=== PATIENT | male | born 1995 | race Caucasian/White ===

== ENCOUNTER 2017-05-09 21:05 | Emergency (ER) | payer SELFPAY ==
[~2017-05-09] VITALS: Ht 182.9 cm; Wt 70.0 kg
[2017-05-09 21:49] VITALS: BP 106/83; PULSE 83; RESP 12; TEMP 97.4; O2SAT 97
[2017-05-09 22:50] LABS: AUTOMATED NEUTROPHIL # 6.4 TH/MM3 (1.8-7.7); BASOPHIL # 0.1 TH/MM3 (0-0.2); BASOPHIL % 0.9 % (0.0-2.0); EOSINOPHIL % 0.5 % (0.0-4.0); HEMATOCRIT 42.3 % (39.0-51.0); HEMOGLOBIN 15.4 GM/DL (13.0-17.0); LYMPHOCYTE # 2.4 TH/MM3 (1.0-4.8); MEAN CORPUSCULAR HEMOGLOBIN 34.6 PG (27.0-34.0); MEAN PLATELET VOLUME 7.5 FL (7.0-11.0); MONO % 10.1 % (0.0-8.0); NEUT % 64.5 % (16.0-70.0); PLATELET COUNT 172 TH/MM3 (150-450); RED BLOOD COUNT 4.45 MIL/MM3 (4.50-5.90); RED CELL DISTRIBUTION WIDTH 14.6 % (11.6-17.2); WHITE BLOOD COUNT 9.9 TH/MM3 (4.0-11.0)
[2017-05-09 22:56] LABS: MEAN CORPUSCULAR HGB CONC 36.4 % (32.0-36.0)
[2017-05-09 23:16] LABS: ALBUMIN 4.3 GM/DL (3.4-5.0); AST (GOT) 55 U/L (15-37); BLOOD UREA NITROGEN 9 MG/DL (7-18); CALCIUM 8.8 MG/DL (8.5-10.1); CHLORIDE 102 MEQ/L (98-107); CREATININE 0.81 MG/DL (0.60-1.30); GLOMERULAR FILTRATION RATE 119 ML/MIN (>89); GLUCOSE,RANDOM 101 MG/DL (74-106); SODIUM (NA) 141 MEQ/L (136-145)
[2017-05-09 23:18] LABS: ALT (GPT) 101 U/L (12-78)
[2017-05-09 23:20] VITALS: BP 120/84; PULSE 76; RESP 12; O2SAT 98
[2017-05-09 23:21] LABS: ALKALINE PHOSPHATASE 92 U/L (45-117); TOTAL BILIRUBIN ADULT 0.4 MG/DL (0.2-1.0)
[2017-05-10] MEDS ORDERED: POTASSIUM CHLORIDE 20 MEQ CONTROLLED RELEASE TAB PO ONE (04:30)
[2017-05-10] MEDS ORDERED: SODIUM CHLOR 0.9% 1000 ML INJ 1,000 ML IV ONE (04:30)
--- NOTE | 2017-05-10 04:50 | PD ---
HPI Chief Complaint: Alcohol/Drug Intoxication Time Seen by Provider: 04:17 Travel History International Travel<30 days: No Contact w/Intl Traveler<30days: No Traveled to known affect area: No History of Present Illness HPI 21-year-old white male presents to emergency department under March[place] act by [facility]. The patient was found heavily intoxicated and unable to care for himself. The patient here has urinated on himself. He is refusing to change into dry clothing. He is unable to give any meaningful history. PFSH Past Medical History Autoimmune Disease: No Depression: Yes Cancer: No Cardiovascular Problems: No Diminished Hearing: No Endocrine: No Genitourinary: No Immune Disorder: No Musculoskeletal: Yes (chronic recurrent right shoulder dislocations) Neurologic: No Psychiatric: No Reproductive: No Respiratory: Yes Immunizations Current: Yes Past Surgical History Other Surgery: Yes Social History Alcohol Use: Yes Tobacco Use: Yes Substance Use: No Allergies-Medications (Allergen,Severity, Reaction): Coded Allergies: No Known Allergies (Verified Adverse Reaction, Unknown, 05/09/17) Reported Meds & Prescriptions Reported Meds & Active Scripts Active No Active Prescriptions or Reported Medications Review of Systems ROS Limitations: Intoxication Physical Exam Narrative GENERAL: Well-nourished, well-developed patient. Smells of EtOH appears intoxicated SKIN: Warm and dry. HEAD: Normocephalic and atraumatic. EYES: No scleral icterus. No injection or drainage. ENT: No nasal drainage noted. Mucous membranes pink. Airway patent. NECK: Supple, trachea midline. Moves head freely without obvious discomfort. CARDIOVASCULAR: Regular rate and rhythm without murmurs, gallops, or rubs. RESPIRATORY: Breath sounds equal bilaterally. No accessory muscle use. GASTROINTESTINAL: Abdomen soft, non-tender, nondistended. EXTREMITIES: No cyanosis or edema. BACK: Nontender without obvious deformity. No CVA tenderness. NEURO: Patient is alert and oriented. no sensorimotor deficits. Nonfocal. Slurred speech. PSYCH: No delusions. No auditory or visual hallucinations. Data Data Last Documented VS Vital Signs Date Time Temp Pulse Resp B/P (MAP) Pulse Ox O2 Delivery O2 Flow Rate FiO2 05/09/17 23:20 76 12 120/84 (96) 98 Room Air 05/09/17 21:49 97.4 Orders Orders Complete Blood Count With Diff (05/09/17 21:59) Comprehensive Metabolic Panel (05/09/17 21:59) Psych Screen (05/09/17 21:59) Drug Screen, Random Urine (05/09/17 21:59) Alcohol (Ethanol) (05/09/17 21:59) Sodium Chlor 0.9% 1000 Ml Inj (Ns 1000 M (05/10/17 04:30) Potassium Chloride (Kcl) (05/10/17 04:30) Labs Laboratory Tests Test 05/09/17 22:26 White Blood Count 9.9 TH/MM3 Red Blood Count 4.45 MIL/MM3 Hemoglobin 15.4 GM/DL Hematocrit 42.3 % Mean Corpuscular Volume 95.0 FL Mean Corpuscular Hemoglobin 34.6 PG Mean Corpuscular Hemoglobin Concent 36.4 % Red Cell Distribution Width 14.6 % Platelet Count 172 TH/MM3 Mean Platelet Volume 7.5 FL Neutrophils (%) (Auto) 64.5 % Lymphocytes (%) (Auto) 24.0 % Monocytes (%) (Auto) 10.1 % Eosinophils (%) (Auto) 0.5 % Basophils (%) (Auto) 0.9 % Neutrophils # (Auto) 6.4 TH/MM3 Lymphocytes # (Auto) 2.4 TH/MM3 Monocytes # (Auto) 1.0 TH/MM3 Eosinophils # (Auto) 0.0 TH/MM3 Basophils # (Auto) 0.1 TH/MM3 CBC Comment AUTO DIFF Differential Comment AUTO DIFF CONFIRMED Blood Urea Nitrogen 9 MG/DL Creatinine 0.81 MG/DL Random Glucose 101 MG/DL Total Protein 8.0 GM/DL Albumin 4.3 GM/DL Calcium Level 8.8 MG/DL Alkaline Phosphatase 92 U/L Aspartate Amino Transf (AST/SGOT) 55 U/L Alanine Aminotransferase (ALT/SGPT) 101 U/L Total Bilirubin 0.4 MG/DL Sodium Level 141 MEQ/L Potassium Level 3.1 MEQ/L Chloride Level 102 MEQ/L Carbon Dioxide Level 22.0 MEQ/L Anion Gap 17 MEQ/L Estimat Glomerular Filtration Rate 119 ML/MIN Ethyl Alcohol Level 407 MG/DL [facility] Medical Decision Making Medical Screen Exam Complete: Yes Emergency Medical Condition: Yes Medical Record Reviewed: Yes Interpretation(s) CT brain: Negative for acute trauma. CT cervical spine: Negative for acute trauma. Laboratory Tests Test 05/09/17 22:26 White Blood Count 9.9 TH/MM3 Red Blood Count 4.45 MIL/MM3 Hemoglobin 15.4 GM/DL Hematocrit 42.3 % Mean Corpuscular Volume 95.0 FL Mean Corpuscular Hemoglobin 34.6 PG Mean Corpuscular Hemoglobin Concent 36.4 % Red Cell Distribution Width 14.6 % Platelet Count 172 TH/MM3 Mean Platelet Volume 7.5 FL Neutrophils (%) (Auto) 64.5 % Lymphocytes (%) (Auto) 24.0 % Monocytes (%) (Auto) 10.1 % Eosinophils (%) (Auto) 0.5 % Basophils (%) (Auto) 0.9 % Neutrophils # (Auto) 6.4 TH/MM3 Lymphocytes # (Auto) 2.4 TH/MM3 Monocytes # (Auto) 1.0 TH/MM3 Eosinophils # (Auto) 0.0 TH/MM3 Basophils # (Auto) 0.1 TH/MM3 CBC Comment AUTO DIFF Differential Comment AUTO DIFF CONFIRMED Blood Urea Nitrogen 9 MG/DL Creatinine 0.81 MG/DL Random Glucose 101 MG/DL Total Protein 8.0 GM/DL Albumin 4.3 GM/DL Calcium Level 8.8 MG/DL Alkaline Phosphatase 92 U/L Aspartate Amino Transf (AST/SGOT) 55 U/L Alanine Aminotransferase (ALT/SGPT) 101 U/L Total Bilirubin 0.4 MG/DL Sodium Level 141 MEQ/L Potassium Level 3.1 MEQ/L Chloride Level 102 MEQ/L Carbon Dioxide Level 22.0 MEQ/L Anion Gap 17 MEQ/L Estimat Glomerular Filtration Rate 119 ML/MIN Ethyl Alcohol Level 407 MG/DL Differential Diagnosis Differential diagnoses: Alcohol intoxication, substance abuse, electrolyte abnormality, malingering Narrative Course This is a 21-year-old white male with a history of alcohol abuse. He presents under Marchman act. His blood alcohol was over 400. The patient has been able to sober up here over the past 7 hours. His blood alcohol still calculates to be over 230. The patient has become a social problem in the ER. He is threatening to leave the ER. He is coming up to the nursing station and becoming belligerent. He has refused to change into dry clothing. He has urinated on himself and in the stretcher. The patient had been given 40 mEq of potassium by mouth and a liter bolus of normal saline. Unfortunately he has no one to pick him up at this time. With an alcohol over 230 he still cannot be released to his own cognizance. The patient once he exhibits are level sobriety can be discharged. This is alcohol intoxication Diagnosis Primary Impression: alcohol intoxication Additional Impression: alcoholism Additional Instructions: Rest. Increase fluids. Avoid alcohol. Avoid illegal substances. Follow-up with [facility] for detox. Do not operate a car or any heavy machinery under the influence of alcohol or drugs. Follow-up with a medical doctor this week. Return to the ER for emergencies Med/Other Pt SpecificInfo: No Meds Exist/No RX given Scripts No Active Prescriptions or Reported Meds Disposition: 01 DISCHARGE HOME Condition: Stable Maury Woodward May 10, 2017 04:50
[2017-05-10 07:30] VITALS: BP 122/81; PULSE 87; RESP 17; TEMP 97.8; O2SAT 98
[2017-05-10 08:25] VITALS: BP 124/81; TEMP 97.8
== END 2017-05-10 08:28 | disposition home or self-care (01) ==
LOC: NEDAMB 21:05 → NEPD 05-10 08:28
DX: F10.229 Alcohol dependence with intoxication, unspecified (principal); Y90.8 Blood alcohol level of 240 mg/100 ml or more; F32.9 Major depressive disorder, single episode, unspecified; Z72.0 Tobacco use
CPT/HCPCS: 80053; 80307; 85025; 96360; 96361; 99284; J7030

== ENCOUNTER 2017-08-11 04:34 | Emergency (ER) | payer SELFPAY ==
[~2017-08-11] VITALS: Ht 182.9 cm; Wt 71.0 kg
[2017-08-11 04:36] VITALS: BP 153/94; PULSE 106; RESP 16; TEMP 97.7; O2SAT 98
[2017-08-11] MEDS ORDERED: LORazepam 2 MG TAB PO ONE (05:00)
[2017-08-11 05:07] LABS: AUTOMATED NEUTROPHIL # 2.1 TH/MM3 (1.8-7.7); BASOPHIL % 0.5 % (0.0-2.0); EOSINOPHIL % 0.9 % (0.0-4.0); HEMATOCRIT 44.5 % (39.0-51.0); HEMOGLOBIN 15.4 GM/DL (13.0-17.0); LYMPH % 41.6 % (9.0-44.0); MEAN CELL VOLUME 97.9 FL (80.0-100.0); MEAN CORPUSCULAR HEMOGLOBIN 33.9 PG (27.0-34.0); MEAN CORPUSCULAR HGB CONC 34.7 % (32.0-36.0); MEAN PLATELET VOLUME 6.2 FL (7.0-11.0); MONO % 12.4 % (0.0-8.0); MONOCYTE # 0.6 TH/MM3 (0-0.9); NEUT % 44.6 % (16.0-70.0); PLATELET COUNT 211 TH/MM3 (150-450); RED BLOOD COUNT 4.55 MIL/MM3 (4.50-5.90); RED CELL DISTRIBUTION WIDTH 15.3 % (11.6-17.2); WHITE BLOOD COUNT 4.7 TH/MM3 (4.0-11.0)
--- NOTE | 2017-08-11 05:13 | PD ---
HPI Chief Complaint: Psychiatric Symptoms Time Seen by Provider: 04:45 Travel History International Travel<30 days: No Contact w/Intl Traveler<30days: No Traveled to known affect area: No History of Present Illness HPI 21-year-old white male presents emergency department on a voluntary basis requesting psychological evaluation. Patient states that he has a history of bipolar and alcohol abuse. Patient states that he had a nervous breakdown today. He had lost his wallet, phone and does not know where they are. He had been drinking heavily. He is tired of being an alcoholic. He is attempting to go cold turkey. Patient is feeling acutely depressed and suicidal. He does not elaborate on any plan. No homicidal ideation. No toxic ingestions. Patient reports that he would like to get back on medicine get sober. He would like to go back home to [place] with his family. Patient denies any fever chills. No chest pain shortness of breath. No nausea vomiting. No abdominal pain or urinary symptoms. Symptoms are moderate. Exacerbated by loss of his phone and wallet. No alleviating factors. PFSH Past Medical History Narrative Medical Bipolar, alcoholism, peritonsillar abscess, hep C, Autoimmune Disease: No Depression: Yes Cancer: No Cardiovascular Problems: No Diminished Hearing: No Endocrine: No Gastrointestinal Disorders: No Genitourinary: No Immune Disorder: No Implanted Vascular Access Dvce: No Musculoskeletal: Yes (chronic recurrent right shoulder dislocations) Neurologic: No Psychiatric: No Reproductive: No Respiratory: Yes Immunizations Current: Yes Tetanus Vaccination: > 5 Years Influenza Vaccination: Yes Past Surgical History Other Surgery: Yes Social History Alcohol Use: Yes (occassionally) Tobacco Use: Yes (10 cigarrettes per day) Substance Use: Yes Allergies-Medications (Allergen,Severity, Reaction): Coded Allergies: No Known Allergies (Verified Adverse Reaction, Unknown, 08/11/17) Reported Meds & Prescriptions Reported Meds & Active Scripts Active No Active Prescriptions or Reported Medications Review of Systems General / Constitutional: No: Fever Eyes: No: Visual changes HENT: No: Headaches Cardiovascular: No: Chest Pain or Discomfort Respiratory: No: Shortness of Breath Gastrointestinal: No: Abdominal Pain Genitourinary: No: Dysuria Musculoskeletal: No: Pain Skin: No Rash Neurologic: No: Weakness Psychiatric: Positive: Depression, Suicidal Ideations, Mood Disorder, Substance Abuse, No: Disorder of Thought, Homicidal Ideation Endocrine: No: Polydipsia Hematologic/Lymphatic: No: Easy Bruising Physical Exam Narrative GENERAL: Well-developed, well-nourished in no apparent distress. Nontoxic appearing. HEAD: Normocephalic, atraumatic. EYES: Pupils equal round and reactive. Extraocular motions intact. No scleral icterus. No injection or drainage. ENT: Nose clear. Throat without erythema, tonsillar hypertrophy or exudate. Uvula midline. Airway patent. NECK: Trachea midline. Supple, nontender, moves head freely. No central bony tenderness or spasm. CARDIOVASCULAR: Regular rate and rhythm without murmurs, gallops, or rubs. RESPIRATORY: Clear to auscultation. Breath sounds equal bilaterally. No wheezes , rales, or rhonchi. GASTROINTESTINAL: Abdomen soft, non-tender, nondistended. No hepato-splenomegaly , or palpable masses. No guarding. EXTREMITIES: No clubbing, cyanosis, or edema. No joint tenderness. BACK: Nontender without deformity. No flank tenderness. NEUROLOGICAL: Awake, alert and oriented x 3 .Cranial nerves grossly intact. Motor and sensory grossly within normal limits. Normal speech. Psych: No hallucinations no delusions Data Data Last Documented VS Vital Signs Date Time Temp Pulse Resp B/P (MAP) Pulse Ox O2 Delivery O2 Flow Rate FiO2 08/11/17 04:36 97.7 106 16 153/94 (113) 98 Orders Orders Complete Blood Count With Diff (08/11/17 04:51) Comprehensive Metabolic Panel (08/11/17 04:51) Thyroid Stimulating Hormone (08/11/17 04:51) Psych Screen (08/11/17 04:51) Drug Screen, Random Urine (08/11/17 04:51) Alcohol (Ethanol) (08/11/17 04:51) Salicylates (Aspirin) (08/11/17 04:51) Tylenol (Acetaminophen) (08/11/17 04:51) Lorazepam (Ativan) (08/11/17 05:00) Labs Laboratory Tests Test 08/11/17 05:00 [facility] Medical Decision Making Medical Screen Exam Complete: Yes Emergency Medical Condition: Yes Medical Record Reviewed: Yes Differential Diagnosis MDM: High Differential diagnoses: Schizophrenia, schizoaffective disorder, bipolar, anxiety, depression, adjustment reaction, mood disorder NOS, ODD, depressive disorder NOS, dementia, dementia with agitation, psychosis NOS, substance induced mood disorder, DMDD, Asperger syndrome, infection,electrolyte abnormality, malingering. Narrative Course Mental health screening discussed with the patient. Psychiatric screen ordered. Scripts No Active Prescriptions or Reported Meds Maury Woodward Aug 11, 2017 05:13
[2017-08-11 05:23] LABS: ALBUMIN 3.9 GM/DL (3.4-5.0); AST (GOT) 124 U/L (15-37); BICARBONATE 22.4 MEQ/L (21.0-32.0); BLOOD UREA NITROGEN 7 MG/DL (7-18); CALCIUM 8.5 MG/DL (8.5-10.1); CHLORIDE 105 MEQ/L (98-107); CREATININE 0.85 MG/DL (0.60-1.30); GLOMERULAR FILTRATION RATE 113 ML/MIN (>89); GLUCOSE,RANDOM 78 MG/DL (74-106); SODIUM (NA) 141 MEQ/L (136-145)
[2017-08-11 05:24] LABS: ALT (GPT) 110 U/L (12-78)
[2017-08-11 05:34] LABS: ALKALINE PHOSPHATASE 95 U/L (45-117); TOTAL BILIRUBIN ADULT 0.4 MG/DL (0.2-1.0); TOTAL PROTEIN 8.3 GM/DL (6.4-8.2)
[2017-08-11 05:48] LABS: ACETAMINOPHEN LESS THAN 2.0 MCG/ML (10.0-30.0)
[2017-08-11 09:22] VITALS: BP 121/65; PULSE 82; RESP 16; O2SAT 99
== END 2017-08-11 13:00 | disposition left against medical advice (07) ==
LOC: NEPD 04:34 → NEPJ 13:00
DX: R45.851 Suicidal ideations (principal); F17.210 Nicotine dependence, cigarettes, uncomplicated; B19.20 Unspecified viral hepatitis C without hepatic coma; F48.8 Other specified nonpsychotic mental disorders
CPT/HCPCS: 80053; 80307; 84443; 85025; 99281

== ENCOUNTER 2017-08-29 07:51 | Observation (INO) ==
[2017-08-29] MEDS ORDERED: Ketorolac Inj 30 MG/ML (IVP) Vial IV.PUSH ONE (08:48)
[2017-08-29] MEDS ORDERED: Dexamethasone PF Inj 10 MG/ML Vial IV.PUSH ONE (08:48)
[2017-08-29] MEDS ORDERED: Dexamethasone Inj 20 MG/5 ML Vial IV.PUSH ONE (09:15)
--- NOTE | 2017-08-29 09:20 | ED ---
HPI General Chief complaint: Dental/Oral Stated complaint: Throat Time Seen by Provider: 08/29/17 08:41 Source: patient, RN notes reviewed and old records reviewed Mode of arrival: ambulatory Limitations: no limitations History of Present Illness HPI narrative: 22-year-old male presents to the emergency department for evaluation of left throat/dental pain. Patient states that started yesterday morning. First fever of 101 yesterday, but states it went away when he woke up this morning. He states the pain is 7/10, throbbing, exacerbated with eating and drinking. Patient states that he had this previously and was admitted for "a couple of days". He is unsure if he had a peritonsillar abscess at that time. Patient reports pain in the right neck. He reports no chronic medical problems and takes no prescribed medications. Moderate severity. Onset (ago): day(s) (Yesterday) Location: mouth (Throat and neck) Radiation: other (Right ear) Severity: moderate Severity scale (1-10): 7 Quality: other (Throbbing) Pain Consistency: constant Relieving factors: none Exacerbating factors: other (Eating) Associated symptoms: denies other symptoms Treatments prior to arrival: none Related Data Home Medications Medication Instructions Recorded Confirmed No Known Home Medications 08/29/17 08/29/17 Allergies Allergy/AdvReac Type Severity Reaction Status Date / Time No Known Allergies AdvReac Unknown UNKNOWN Uncoded 08/29/17 08:18 Review of Systems Except as stated in HPI: all other systems reviewed are negative PMFSH Medical History Medical History Patient denies medical problems (Acute) Surgical History Surgical History H/O arthroscopy of shoulder (Acute) Social History Social History Substance History: No History of Abuse Second Hand Smoke Exposure: No How Often Do You Have a Drink Containing Alcohol: 4 or more times a week Recent Travel in [place] within the Last 8 Weeks: No Recent Out of Country Travel within the Last 8 Weeks: No Immunization History Tetanus Immunization: Unsure Hx Influenza Vaccine This Season: No Exam Narrative Exam Narrative: GENERAL: Well-nourished, well-developed male patient, afebrile SKIN: Focused skin assessment warm/dry. HEAD: Normocephalic. Atraumatic ENT: Mucosa pink and moist. It is difficult to visualize the posterior mouth as patient has significant trismus. Uvula does appear midline, but cannot visualize the tonsils. No uvular edema. No uvular, palatal, or tonsillar deviation. Airway patent. Nasal turbinates appear normal without nasal blood, purulent drainage or septal hematoma. Bilateral tympanic membranes clear without erythema or perforation. EYES: No scleral icterus. No injection or drainage. NECK: Supple, trachea midline. No JVD or lymphadenopathy. CARDIOVASCULAR: Regular rate and rhythm without murmurs, gallops, or rubs. RESPIRATORY: Breath sounds equal bilaterally. No accessory muscle use. GASTROINTESTINAL: Abdomen soft, non-tender, nondistended. MUSCULOSKELETAL: No cyanosis, or edema. BACK: No obvious deformity. Course Initial Documented Vital Signs Temperature 99.9 F H 08/29/17 07:58 Pulse Rate 88 08/29/17 07:58 Respiratory Rate 16 08/29/17 07:58 Blood Pressure 150/80 H 08/29/17 07:58 Pulse Oximetry 99 08/29/17 07:58 Last Documented Vital Signs Temperature 99.9 F H 08/29/17 07:58 Pulse Rate 74 08/29/17 09:33 Respiratory Rate 22 08/29/17 10:49 Blood Pressure 150/80 H 08/29/17 07:58 Pulse Oximetry 98 08/29/17 09:33 Medical Decision Making [facility] Narrative Medical decision making narrative: 22-year-old male presents to the emergency department for evaluation of sore throat, difficulty swallowing. He has significant trismus and it makes it very difficult to visualize. IV access established. CBC, BMP, CT of the soft tissues neck with IV contrast ordered and pending. Patient is given dexamethasone 10 mg IV, Toradol 30 mg IV. CBC shows no acute abnormalities. BMP shows no acute abnormality. CT soft tissue neck shows a right small tonsillar abscess. Cultures 2 are ordered. Patient is given Rocephin 1 g IV. I discussed the case with my attending physician, Dr. romano, who recommends admission for IV antibiotics, ENT consult. Hospitalist is paged for admission. Differential Diagnosis Differential Diagnosis: Tonsillitis versus peritonsillar abscess versus dental abscess Medical Records Medical records reviewed: Yes I reviewed the patient's medical records. Lab Data Result diagrams: 08/29/17 09:20 08/29/17 09:20 Lab Results 07/13/18 07/13/18 Range/Units 09:20 09:20 WBC 9.8 (4.0-11.0) th/mm3 RBC 4.30 L (4.50-5.90) mil/mm3 Hgb 14.7 (13.0-17.0) gm/dL Hct 43.2 (39.0-51.0) % MCV 100.5 H (80.0-100.0) fL MCH 34.2 H (27.0-34.0) pg MCHC 34.0 (32.0-36.0) % RDW 14.6 (11.6-17.2) % Plt Count 127 L (150-450) th/mm3 MPV 6.9 L (7.0-11.0) fL Neut % (Auto) 77.9 H (16.0-70.0) % Lymph % (Auto) 7.3 L (9.0-44.0) % [place] % (Auto) 14.3 H (0.0-8.0) % Eos % (Auto) 0.1 (0.0-4.0) % Baso % (Auto) 0.4 (0.0-2.0) % Neut # (Auto) 7.7 (1.8-7.7) th/mm3 Lymph # (Auto) 0.7 L (1.0-4.8) th/mm3 [place] # (Auto) 1.4 H (0.0-0.9) th/mm3 Eos # (Auto) 0.0 (0.0-0.4) th/mm3 Baso # (Auto) 0.0 (0.0-0.2) th/mm3 WBC Differential . Differential Comment Auto diff final Sodium 135 L (136-145) meq/L Potassium 4.1 (3.5-5.1) meq/L Chloride 101 (98-107) meq/L Carbon Dioxide 27.2 (21.0-32.0) meq/L Anion Gap 7 (5-15) meq/L BUN 8 (7-18) mg/dL Creatinine 0.84 (0.60-1.30) mg/dL Estimated GFR Greater than 89 (>89) mL/min Random Glucose 99 (74-106) mg/dL Calcium 8.7 (8.5-10.1) mg/dL Imaging Data Radiologist's impression: ITS Impressions Soft Tissue Neck CT 08/29/17 08:51 CONCLUSION: 1. Small right tonsillar abscess. Discharge Plan Discharge Disposition Patient Disposition: 30 Still Patient Discharge Details Diagnosis: Tonsil, abscess Physicians Team ED Provider: Andrade Epstein ED Midlevel Provider: Karen Raymundo Primary Care Provider: Primary Care Jazzmine Tyson Attending Provider: Michael David Other Providers: Maury Jacobsen Status ED Status: Admitted Observation Patient
[2017-08-29 09:43] LABS: Baso % (Auto) 0.4 % (0.0-2.0); Eos % (Auto) 0.1 % (0.0-4.0); Hematocrit 43.2 % (39.0-51.0); Hemoglobin 14.7 gm/dL (13.0-17.0); Lymph # (Auto) 0.7 th/mm3 (1.0-4.8); Lymph % (Auto) 7.3 % (9.0-44.0); Mean Corpuscular Hemoglobin 34.2 pg (27.0-34.0); Mean Corpuscular Volume 100.5 fL (80.0-100.0); Mean Platelet Volume 6.9 fL (7.0-11.0); Mono # (Auto) 1.4 th/mm3 (0.0-0.9); Mono % (Auto) 14.3 % (0.0-8.0); Neut # (Auto) 7.7 th/mm3 (1.8-7.7); Neut % (Auto) 77.9 % (16.0-70.0); Platelet Count 127 th/mm3 (150-450); Red Cell Distribution Width 14.6 % (11.6-17.2); White Blood Count 9.8 th/mm3 (4.0-11.0)
[2017-08-29 09:57] LABS: Anion Gap 7 meq/L (5-15); Blood Urea Nitrogen 8 mg/dL (7-18); Calcium 8.7 mg/dL (8.5-10.1); Carbon Dioxide 27.2 meq/L (21.0-32.0); Chloride 101 meq/L (98-107); Glomerular Filtration Rate Greater Than 89 mL/min (>89); Glucose,Random 99 mg/dL (74-106); Potassium 4.1 meq/L (3.5-5.1); Sodium 135 meq/L (136-145)
--- NOTE | 2017-08-29 10:45 | CT ---
EXAM DATE: 08/29/2017 10:06 AM EDT AGE/SEX: 22 years / Male INDICATIONS: Sore throat, fever, swollen tonsil since yesterday CLINICAL DATA: This is the patient's initial encounter. Patient reports that signs and symptoms have been present for 1 day and indicates a pain score of 5/10. MEDICAL/SURGICAL HISTORY: None. None. RADIATION DOSE: 15.26 CTDI (mGy) COMPARISON: No prior exams available for comparison. TECHNIQUE: Helical acquisition was performed using a multirow detector CT scanner during the adminis tration of 72 ml Omnipaque 350 (iohexol) nonionic water-soluble contrast as a single exam dose. Usi ng automated exposure control and adjustment of the mA and/or kV according to patient size, radiation dose was kept as low as reasonably achievable to obtain optimal diagnostic quality images. DICOM fo rmat image data is available electronically for review and comparison. FINDINGS: Nasopharynx is unremarkable. The right tonsillar pillar is abnormal, enlarged with a small less than 1 cm low-density area within the tonsillar pillar consistent with small tonsillar abscess. Base of the tongue on the right is edematous as well. Left side of the oropharynx appears normal. The low neck is unremarkable. CONCLUSION: 1. Small right tonsillar abscess. Electronically signed by: Po Crockett MD 08/29/2017 10:44 AM EDT
[2017-08-29] MEDS ORDERED: Ketorolac Inj 30 MG/ML (IVP) Vial IV.PUSH PRN (12:33)
[2017-08-29] MEDS ORDERED: Bisacodyl 10 MG Supp RECTAL PRN (12:34)
[2017-08-29] MEDS ORDERED: Acetaminophen 325 MG Tablet PO PRN (12:34)
[2017-08-29] MEDS ORDERED: Famotidine 20 MG Tablet PO SCH (12:45)
--- NOTE | 2017-08-29 12:47 | P.HP ---
History of Present Illness Primary Care Physician: No Primary Care Physician History of Present Illness: This is a 22-year-old male who presented to the emergency department complaining of a 1 day history of severe right throat pain worse with eating and drinking associated with fever T-max 101, nausea and anorexia. Denies headache, dizziness, vomiting, chest pain and shortness of breath. States he has history of peritonsillar abscess. Soft tissue neck CT shows small right peritonsillar abscess and has been advised hospitalization. He received IV Toradol, dexamethasone and Rocephin. All other systems reviewed negative - Diagnosis (1) Tonsil, abscess Inpatient Certification: I certify that the inpatient services were ordered in accordance with Medicare regulations governing the order. This includes certification that hospital inpatient services are reasonable and necessary and in the case of services not specified as inpatient-only under 42 CFR 419.22(n), that they are appropriately provided as inpatient services in accordance to with the 2-midnight benchmark under 43 CFR 412.3(e) Review of Systems All other systems reviewed negative except as stated in HPI PMFSH - History History Provided By: Patient - Medical History Medical History: Medical History (Last Updated 08/29/17 @ 12:44 by Michael David MD) Patient denies medical problems - Surgical History Surgical History: Surgical History (Last Updated 08/29/17 @ 08:23 by Claudette Severino) H/O arthroscopy of shoulder - Tobacco History Second Hand Smoke Exposure: No Tobacco Use In Past 30 Days: No - Alcohol History How Often Do You Have a Drink Containing Alcohol: 4 or more times a week - Substance Use History Substance History: No History of Abuse - Travel History Recent Travel in the [place] Within the Last 8 Weeks: No Recent Travel Out of the Country Within the Last 8 Weeks: No - Immunization History Tetanus Immunization: Unsure Hx Influenza Vaccine This Season: No Medications and Allergies Active Medications: Active Medications Acetaminophen (Tylenol) 650 mg PO Q4H PRN PRN Reason: Temp > 100.4 Al Hydroxide/Mg Hydroxide (Milk Of Magnmelisa Liq) 30 ml PO Q12H PRN PRN Reason: Mild Constipation Bisacodyl (Dulcolax Supp) 10 mg RECTAL DAILY PRN PRN Reason: SEVERE CONSITIPATION Dexamethasone Sodium Phosphate (Decadron Inj) 4 mg IV.PUSH Q6HR PAVEL Famotidine (Pepcid) 10 mg PO BID [facility]AV[facility] Ampicillin Sodium/Sulbactam (Sodium 3 gm/ Sodium Chloride) 100 mls @ 200 mls/ hr IV.SIG Q6H PAVEL Sodium Chloride (Ns Inj) 1,000 mls @ 80 mls/hr IV.CONT .[id number] [facility] Ketorolac Tromethamine (Toradol Inj) 30 mg IV.PUSH Q6H PRN PRN Reason: PAIN SCALE 1 TO 10 Lactulose (Lactulose Liq) 30 ml PO DAILY PRN PRN Reason: SEVERE CONSITIPATION Ondansetron HCl (Zofran Inj) 4 mg IV.PUSH Q6H PRN PRN Reason: NAUSEA OR VOMITING Senna/Docusate Sodium (Sahra-Colace) 1 tab PO BID [facility] Sennosides (Senokot) 17.2 mg PO Q12H PRN PRN Reason: Moderate Constipation Sodium Chloride (Ns Flush) 2 ml IV.FLUSH PRN PRN PRN Reason: FLUSH AFTER USING IV ACCESS Last Admin: 08/29/17 09:18 Dose: 2 ml Allergies Allergy/AdvReac Type Severity Reaction Status Date / Time No Known Allergies AdvReac Unknown UNKNOWN Uncoded 08/29/17 08:18 Home Medications Medication Instructions Recorded Confirmed Type No Known Home Medications 08/29/17 08/29/17 History Exam Vital signs: Vital Signs 08/29/17 07:58 08/29/17 09:33 08/29/17 10:49 Temperature 99.9 F H Pulse Rate 88 74 Respiratory Rate 16 18 22 Blood Pressure 150/80 H Pulse Oximetry 99 98 Intake & Output 08/28/17 08/29/17 08/29/17 18:59 06:59 18:59 Intake Total 100 / 100 Balance 100 / 100 Weight 77.111 kg Intake: IV 100 / 100 Rocephin Inj 1,000 MG In NS Inj 100 / 100 100 ML @ 200 mls/hr IV.SIG ONCE ONE Rx#:[id number] Narrative: GENERAL: Well-developed and well-nourished in no distress SKIN: Warm and dry. HEAD: Atraumatic. Normocephalic. EYES: Pupils equal and round. No scleral icterus. No injection or drainage. ENT: No nasal bleeding or discharge. Mucous membranes pink and moist. Unable to inspect oral cavity secondary to significant trismus NECK: Trachea midline. No JVD. CARDIOVASCULAR: Regular rate and rhythm. RESPIRATORY: No accessory muscle use. Clear to auscultation. Breath sounds equal bilaterally. GASTROINTESTINAL: Abdomen soft, non-tender, nondistended. MUSCULOSKELETAL: Extremities without clubbing, cyanosis, or edema. No obvious deformities. NEUROLOGICAL: Awake and alert. No obvious cranial nerve deficits. Motor grossly within normal limits. Five out of 5 muscle strength in the arms and legs. Normal speech. PSYCHIATRIC: Appropriate mood and affect; insight and judgment normal. Results - Labs CBC & Chem 7: 08/29/17 09:20 08/29/17 09:20 Labs: Laboratory Results - last 24 hr 08/29/17 08/29/17 09:20 09:20 WBC 9.8 RBC 4.30 L Hgb 14.7 Hct 43.2 MCV 100.5 H MCH 34.2 H MCHC 34.0 RDW 14.6 Plt Count 127 L MPV 6.9 L Neut % (Auto) 77.9 H Lymph % (Auto) 7.3 L [place] % (Auto) 14.3 H Eos % (Auto) 0.1 Baso % (Auto) 0.4 Neut # (Auto) 7.7 Lymph # (Auto) 0.7 L [place] # (Auto) 1.4 H Eos # (Auto) 0.0 Baso # (Auto) 0.0 WBC Differential . Differential Comment Auto diff final Sodium 135 L Potassium 4.1 Chloride 101 Carbon Dioxide 27.2 Anion Gap 7 BUN 8 Creatinine 0.84 Estimated GFR Greater than 89 Random Glucose 99 Calcium 8.7 - Imaging Impressions Soft Tissue Neck CT 08/29/17 08:51 CONCLUSION: 1. Small right tonsillar abscess. Caprini VTE Risk Assessment Caprini VTE Risk Assessment: No/Low Risk (score <= 1) Caprini Risk Assessment Model: Point Value = 1 Point Value = 2 Point Value = 3 Point Value = 5 Age 41-60 Minor surgery BMI > 25 kg/m2 Swollen legs Varicose veins or History of unexplained or recurrent spontaneous Oral contraceptives or hormone replacement Sepsis (< 1 month) Serious lung disease, including pneumonia (< 1 month) Abnormal pulmonary function Acute myocardial infarction Congestive heart failure (< 1 month) History of inflammatory bowel disease Medical patient at bed rest Age 61-74 Arthroscopic surgery Major open surgery (> 45 min) Laparoscopic surgery (> 45 min) Malignancy Confined to bed (> 72 hours) Immobilizing plaster cast Central venous access Age >= 75 History of VTE Family history of VTE Factor V Leiden Prothrombin [id number] Lupus anticoagulant Anticardiolipin antibodies Elevated serum homocysteine Heparin-induced thrombocytopenia Other congenital or acquired thrombophilia Stroke (< 1 month) Elective arthroplasty Hip, pelvis, or leg fracture Acute spinal cord injury (< 1 month) Prophylaxis Regimen: Total Risk Factor Score Risk Level Prophylaxis Regimen 0-1 Low Early ambulation 2 Moderate Order ONE of the following: *Sequential Compression Device (SCD) *Heparin 5000 units SQ BID 3-4 Higher Order ONE of the following medications: *Heparin 5000 units SQ TID *Enoxaparin/Lovenox 40 mg SQ daily (WT < 150 kg, CrCl > 30 mL/min) *Enoxaparin/Lovenox 30 mg SQ daily (WT < 150 kg, CrCl > 10-29 mL/min) *Enoxaparin/Lovenox 30 mg SQ BID (WT < 150 kg, CrCl > 30 mL/min) AND/OR *Sequential Compression Device (SCD) 5 or more Highest Order ONE of the following medications: *Heparin 5000 units SQ TID (Preferred with Epidurals) *Enoxaparin/Lovenox 40 mg SQ daily (WT < 150 kg, CrCl > 30 mL/min) *Enoxaparin/Lovenox 30 mg SQ daily (WT < 150 kg, CrCl > 10-29 mL/min) *Enoxaparin/Lovenox 30 mg SQ BID (WT < 150 kg, CrCl > 30 mL/min) AND *Sequential Compression Device (SCD) Assessment and Plan - Assessment (1) Tonsil, abscess Code(s): J36 - Peritonsillar abscess Status: Acute - Plan This is a 22-year-old male who presented to the emergency department complaining of a 1 day history of severe right throat pain worse with eating and drinking associated with fever T-max 101, nausea and anorexia. Soft tissue neck CT shows small right tonsillar abscess a Right tonsillar abscess. Start IV Unasyn and continue IV dexamethasone and Toradol. ENT consultation. Start IV hydration. Diet as tolerated Counseled regarding alcohol use GI prophylaxis with Pepcid DVT prophylaxis with SCD Discharge Planning: home
--- NOTE | 2017-08-29 13:48 | P.AMA ---
AMA Note - AMA Note AMA Statement: Patient Rashawn Petersen has decided to leave the hospital against medical advice. This patient has the capacity to refuse care and understands the risks of leaving, including permanent disability and/or , and has had an opportunity to ask questions about his/her condition. The patient has been informed that he/she may return for care at any time, and follow up has been arranged/advised. - AMA Note Patient Condition on Discharge: Fair
[2017-08-29] MEDS ORDERED: Ampicillin/Sulbactam Inj 3 GM in Sodium Chloride 0.9% Inj 100 ML IV.SIG SCH (14:00)
[2017-08-29] MEDS ORDERED: Sod Chloride 0.9% Inj 1,000 ML IV.CONT SCH (14:00)
[2017-08-29] MEDS ORDERED: Senna/Docusate Sodium 8.6/50 MG Tablet PO SCH (21:00)
== END 2017-08-29 13:15 | disposition left against medical advice (07) ==
LOC: NEDA 07:51 → NEPD 07:51 → NEDA 14:00
PROVIDERS: ADMIT Internal Medicine; ATTEND Internal Medicine
DX: J36 Peritonsillar abscess